=== PATIENT | female | born 1930 | race African-American/Black ===

== ENCOUNTER 2016-11-05 08:39 | Day surgery (SDC) | payer OTHER ==
[2016-11-05] MEDS ORDERED: LIDOCAINE 1% 20 ML MDV ID ONE (09:10)
[2016-11-05] MEDS ORDERED: LIDOCAINE 1% 20 ML MDV ONE (09:10)
[2016-11-05] MEDS ORDERED: VERSED ONE (10:03)
[2016-11-05] MEDS ORDERED: DIPRIVAN 20 ML VIAL IVP ONE (10:03)
[2016-11-05 13:05] VITALS: BP 152/76; TEMP 97
--- NOTE | 2016-11-05 14:15 | OP ---
PROCEDURE: COLONOSCOPY TO CECUM WITH SNARE POLYPECTOMY, CLIP PLACEMENT, FIJIAN INK TATTOOING. ENDOSCOPIST: Arjun IYER M.D. INDICATION: HISTORY OF POLYPS. INSTRUMENT: [facility]-190. MEDICATION: PER ANESTHESIA. PROCEDURE: The patient was positioned for colonoscopy. The digital rectal exam was negative. The colonoscope was inserted through the anus and advanced to the cecum. The cecum was identified using the ileocecal valve and the appendiceal orifice as landmarks. The scope was slowly withdrawn through an adequately prepped colon. Careful inspection made of each colonic segment and the scope was withdrawn in a circumferential fashion. Care if taken to inspect to the proximal side of the ileocecal valves, haustral folds, flexures and rectal valves. At the Hepatic flexure we encountered a 1.5 to 1.8cm polyp. Initially this appears to be sessile however with manipulation it appeared to be a more of semi pedunculated type polyp. We were able to remove this using snare cautery. There was some mild oozing the from the base and a clip was placed. ink was then applied to localize the area. There was no bleeding at the completion of the procedure. The remaining colon was notable for some diverticuli in the left colon and the retroflex exam was otherwise negative. She tolerated the procedure without immediate complication. Withdraw time 16 minutes and 46 seconds. PLAN: 1. We will suggest repeat colonoscopy in one year. After we review the pathology if she is agreeable to repeat the exam. 2. Further recommendations to follow CC: Dr. Cyrus WALTON
== END 2016-11-05 11:45 | disposition home or self-care (01) ==
LOC: SURG 08:39
PROVIDERS: ATTEND Internal Medicine Gastroenterology
DX: Z09 Encounter for follow-up examination after completed treatment for conditions other than malignant neoplasm (principal); Z86.010 Personal history of colon polyps; D12.3 Benign neoplasm of transverse colon; E11.9 Type 2 diabetes mellitus without complications
CPT/HCPCS: 82962

== ENCOUNTER 2016-11-15 08:20 | Outpatient (CLI) ==
--- NOTE | 2016-11-15 09:05 | US ---
Exam: Bilateral renal ultrasound. HISTORY: Chronic kidney disease stage III. COMPARISON: 05/06/2015 CT TECHNIQUE: Ultrasonography of the right and left kidneys. FINDINGS: The right kidney measures 9.5 x 3.8 x 3.7 cm and the left kidney measures 8.8 x 4.4 x 3.9 cm. There is mild bilateral renal cortical thinning. No hydronephrosis is seen. A left renal inferior pole a nechoic structure is seen measuring 1.3 x 1.2 x 1.2 cm. No right or left renal solid masses are rosio ntified. The bladder is not well distended, and not identified. IMPRESSION: Mild bilateral renal cortical thinning which could be related to medical renal disease. 1.3 cm left renal cyst.
== END 2016-11-15 08:21 | disposition home or self-care (01) ==
LOC: RAD 08:20
PROVIDERS: ATTEND Family Medicine
DX: N18.3 Chronic kidney disease, stage 3 (moderate) (principal)
CPT/HCPCS: 76770

== ENCOUNTER 2018-03-10 06:57 | Day surgery (SDC) | payer OTHER ==
[2018-03-10] MEDS ORDERED: DIPRIVAN 20 ML VIAL IVP ONE (09:18)
[2018-03-10 15:08] VITALS: BP 122/56; TEMP 98.4
--- NOTE | 2018-03-11 10:46 | OP ---
PROCEDURE: COLONOSCOPY TO THE CECUM WITH SNARE POLYPECTOMY. ENDOSCOPIST: Arjun IYER M.D. INDICATION: HISTORY OF POLYPS INSTRUMENT: [facility]-190. MEDICATION: PER ANESTHESIA. PROCEDURE: The patient was positioned for colonoscopy. The digital rectal exam was negative. The colonoscope was inserted through the anus and advanced to the cecum. The cecum was identified using the ileocecal valve and the appendiceal orifice as landmarks. The scope was slowly withdrawn through an adequately prepped colon. [place] Bowel Prep Score equal 9. At the Hepatic flexure we identified the area with cypriot ink. I saw no residual polyp at the scare. A small polyp associated with the hepatic flexure was removed using cold snare polypectomy. A 6mm semi-pedunculated polyp was removed at 15cm using snare cautery. The retroflex exam was otherwise normal. She tolerated the procedure without immediate complication. Withdraw time 7 minutes and 37 seconds. PLAN: 1. Given her age I'm doubtful the repeat colonoscopy is indicated. We will see her back as needed. CC: Dr. Eric Bridges. [facility]
== END 2018-03-10 10:30 | disposition home or self-care (01) ==
LOC: SURG 06:57
PROVIDERS: ATTEND Internal Medicine Gastroenterology
DX: D12.3 Benign neoplasm of transverse colon (principal); D12.6 Benign neoplasm of colon, unspecified; Z86.010 Personal history of colon polyps

== ENCOUNTER 2019-03-22 15:53 | Emergency (ER) | payer OTHER ==
[2019-03-22 16:11] VITALS: BP 156/117; TEMP 98.1; BMI 23.1
--- NOTE | 2019-03-22 16:55 | CT ---
Exam: CT of the brain without intravenous contrast. Comparison: None available. Reason for exam: Dizziness and weakness, stroke protocol. FINDINGS: No acute intracranial hemorrhage, mass effect, or territorial infarction. Parenchymal dasha nges are seen consistent with chronic microvascular disease. Parenchymal hypodensities are seen in t he left basal ganglia, left and right frontal lobes, and periventricular white matter. Chronic appea ring hypodensities seen in the left posterior parietal lobe best seen on coronal image number 48. Th e intracranial structures appear midline. The calvarium appears intact without depressed fracture. Mucosal thickening is seen in the ethmoid sinuses. No depressed calvarial fracture is seen. Impression: 1. No acute intracranial hemorrhage or mass effect is seen on this exam. 2. Parenchymal changes are seen consistent with chronic microvascular disease and old lacunar infarc ts. If clinical concern exists for acute infarct, MRI should be performed for further characterizati on. Findings were discussed directly with the emergency room physician at 1650 hours on 03/22/2019.
[2019-03-22] MEDS ORDERED: K-DUR PO STA (17:15)
--- NOTE | 2019-03-22 17:25 | ED.PDOC ---
General ED Provider: Dr. DESMOND DOTSON-ER Chief Complaint: Weakness Stated Complaint: her right side was weak and she was tilting to the right--she refused ems Time Seen by Physician: 15:55 Mode of Arrival: Wheelchair Information Source: Patient, Family Exam Limitations: No limitations Primary Care Provider: RUSS ANDRADE Nursing and Triage Documentation Reviewed and Agree: Yes Does patient meet sepsis criteria?: No System Inflammatory Response Syndrome: Not Applicable Sepsis Protocol: For patient's 13 years and over: Temp is 96.8 and below OR 101 and greater Pulse >90 BPM Resp >20/minute Acutely Altered Mental Status Are patient's symptoms suggestive of a new infection, such as: -Pneumonia -Skin, Soft Tissue -Endocarditis -UTI -Bone, Joint Infection -Implantable Device -Acute Abdominal Infection -Wound Infection -Meningitis -Blood Stream Catheter Infection -Unknown Neurological Complaint Exam - Weakness Complaint/Exam Last Known Well: 1 today Onset: Sudden Symptoms Are: Resolved Timing: Constant Initial Severity: Mild Current Severity: Mild Character: Reports: Weak Aggravating: Reports: None Alleviating: Reports: None Associated Signs and Symptoms: Reports: Unsteady gait CVA Risk Factors: Reports: Hypertension JVD Present: No Carotid Bruit Present: No Glascow Coma Scale (see protocol): 15 Nystagmus Present: No Gag Reflex Present: Yes Meningeal Signs Positive: No Focal Weakness: Present: None Focal Sensory Loss: Present: None Gait: Unsteady Romberg Test Positive: No Heel to Toe Normal: No [place]-Hallpike Test Positive: No Differential Diagnoses: Metabolic abnormalities Quality Indicator For Non-Traumatic Chest Pain/Syncope: EKG Performed Review of Systems - Review Of Systems Constitutional: Reports: No symptoms Eyes: Reports: No symptoms Ears, Nose, Mouth, Throat: Reports: No symptoms Respiratory: Reports: No symptoms Cardiac: Reports: No symptoms GI: Reports: No symptoms : Reports: No symptoms Musculoskeletal: Reports: No symptoms Skin: Reports: No symptoms Neurological: Reports: Weakness Endocrine: Reports: No symptoms Hematologic/Lymphatic: Reports: No symptoms All Other Systems: Reviewed and Negative Past Medical History - Past Medical History Previously Healthy: No Endocrine: Reports: Unknown Cardiovascular: Reports: Hypertension Respiratory: Reports: Unknown Hematological: Reports: None Gastrointestinal: Reports: None Genitourinary: Reports: None Neuro/Psych: Reports: None Musculoskeletal: Reports: None Cancer: Reports: None Last Menstrual Period: none - Surgical History General Surgical History: Reports: Unknown - Family History Family History: Reports: Unknown - Social History Smoking Status: Former smoker Hx Substance Use: No Alcohol Screening: None Physical Exam - Physical Exam Appearance: Well-appearing, No pain distress, Well-nourished Eyes: VIRA, EOMI, Conjunctiva clear ENT: Ears normal, Nose normal, Oropharynx normal Neck: Supple Respiratory: Airway patent, Breath sounds clear, Breath sounds equal, Respirations nonlabored Cardiovascular: RRR, Pulses normal, No rub, No murmur GI/: Soft, Nontender, No masses, Bowel sounds normal, No Organomegaly Musculoskeletal: Normal strength, ROM intact, No edema, No calf tenderness Skin: Warm, Dry, Normal color Neurological: Alert, Oriented Psychiatric: Affect appropriate, Mood appropriate Interpretation - Radiology Interpretation Radiology Interpretation By: Radiologist Radiology Results: Negative Exam Interpreted: CT Scan - EKG Interpretation Time of EKG #1: 17:26 Rate: Normal Rhythm: Sinus Ectopy: None [place]: NL ST Segment: Normal Interpretation: nsr Re-Evaluation - Re-Evaluation Time of Re-Evaluation: 17:26 Status: Improved Vital Signs Stable: Yes Pain Level: 0 Appearance: NAD Lungs: Clear Skin: Warm and Dry Neuro: Alert and Oriented X3 CV: RRR Physician Notification - Case Discussed Physician Notified: dr andrade Time of Notification: 17:26 Critical Care Note - Critical Care Note Total Time (mins): 0 Course - Course Hematology/Chemistry: 03/22/19 16:45 03/22/19 16:45 Orders, Labs, Meds: Lab Review 03/22/19 03/22/19 16:45 16:45 WBC 6.36 RBC 4.65 Hgb 12.8 Hct 40.0 MCV 86.0 MCH 27.5 MCHC 32.0 RDW Coeff of Dale 13.9 Plt Count 179 Immature Gran % (Auto) 0.2 Neut % (Auto) 71.3 Lymph % (Auto) 16.8 Yell % (Auto) 10.5 H Eos % (Auto) 0.6 Baso % (Auto) 0.6 Immature Gran # (Auto) 0.0 Neut # (Auto) 4.5 Lymph # (Auto) 1.1 Yell # (Auto) 0.7 Eos # (Auto) 0.0 Baso # (Auto) 0.0 ESR 20 Sodium 139.5 Potassium 2.49 L* Chloride 99.7 Carbon Dioxide 34.4 H Anion Gap 7.89 BUN 31.0 H Creatinine 1.20 Estimated GFR (MDRD) 52.00 BUN/Creatinine Ratio 25.83 Glucose 125.6 H Calcium 9.29 Total Bilirubin 1.34 H AST 28.5 ALT 15.3 Alkaline Phosphatase 107.9 Total Creatine Kinase 45.5 Troponin I 0.012 Total Protein 7.08 Albumin 3.86 Globulin 3.22 Albumin/Globulin Ratio 1.19 Orders Category Date Time Status EKG-(ED ONLY) Stat CARDIO 03/22/19 16:25 Completed TRANSFER TO OUTSIDE FACILITY .TO [facility] 03/22/19 17:27 Active ([place], [place]) WRITE TRANSFER/SBAR NOTE ONCE CARE 03/22/19 17:27 Active DISCHARGE ASSESSMENT ONCE DISCHARGE 03/22/19 17:27 Active WRITE DISCHARGE NOTE ONCE DISCHARGE 03/22/19 17:27 Active ED ANIMAL THERAPIST APPLIED .ONCE EMERGENCY 03/22/19 16:25 Active ED IV/MEDIPORT/POWERPORT .ONCE EMERGENCY 03/22/19 16:25 Active IV [ED IV/MEDIPORT/POWERPORT] .ONCE EMERGENCY 03/22/19 17:14 Active CBC W/ AUTO DIFF Stat LAB 03/22/19 16:45 Completed COMPREHENSIVE METABOLIC PANEL Stat LAB 03/22/19 16:45 Completed CREATINE KINASE Stat LAB 03/22/19 16:45 Completed ESR Stat LAB 03/22/19 16:45 Completed TROPONIN I Stat LAB 03/22/19 16:45 Completed 0.9 % Sodium Chloride [Saline Flush] MEDS 03/22/19 16:25 Active 1 syr IVF PRN PRN 0.9 % Sodium Chloride [Saline Flush] MEDS 03/22/19 17:14 Active 1 syr IVF PRN PRN Potassium Chloride [K-Dur] MEDS 03/22/19 17:15 Discontinued 40 meq PO ONCE STA CT HEAD W/O CONTRAST Stat RADS 03/22/19 16:25 Completed Medications Generic Name Dose Route Start Last Admin Trade Name Freq PRN Reason Stop Dose Admin Sodium Chloride 1 syr 03/22/19 16:25 03/22/19 17:29 Saline Flush IVF 1 syr PRN PRN Administration To flush IV Sodium Chloride 1 syr 03/22/19 17:14 Saline Flush IVF PRN PRN To flush IV Discontinued Medications Generic Name Dose Route Start Last Admin Trade Name Asad PRN Reason Stop Dose Admin Potassium Chloride 40 meq 03/22/19 17:15 03/22/19 17:26 K-Dur PO 03/22/19 17:16 40 meq ONCE STA Administration Vital Signs: Temp Pulse Resp BP Pulse Ox 03/22/19 15:54 98.1 F 86 18 156/117 H 98 Departure - Departure Time of Disposition: 17:26 Disposition: HOME SELF-CARE Discharge Problem: Muscle weakness, Hypokalemia Instructions: Hypokalemia (ED) Condition: Good Pt referred to PMD for follow-up: Yes IPMP verified?: No Allergies/Adverse Reactions: Allergies No Known Allergies Allergy (Verified 03/22/19 16:01) Home Medications: Ambulatory Orders Furosemide 20 mg PO BID 11/05/16 Potassium Chloride [Klor-Con 10] 10 meq PO BID 11/05/16 Spironolactone 25 mg PO DAILY 11/05/16 Terazosin HCl 10 mg PO DAILY 11/05/16 Amlodipine Besylate [Norvasc] 5 mg PO DAILY 03/22/19 Atorvastatin Calcium [Lipitor] 20 mg PO BEDTIME 03/22/19 Transfer Form Completed: Yes Disposition Discussed With: Patient, Family
[2019-03-22] MEDS ORDERED: NORVASC PO STA (17:35)
[2019-03-22] MEDS ORDERED: ASPIRIN EC PO STA (17:39)
== END 2019-03-22 18:24 | disposition short-term general hospital (02) ==
LOC: ED 15:53
DX: M62.81 Muscle weakness (generalized) (principal); E87.6 Hypokalemia; R26.81 Unsteadiness on feet; I10 Essential (primary) hypertension; Z79.899 Other long term (current) drug therapy
CPT/HCPCS: 36415; 80053; 82550; 84484; 85025; 85651; 93005; 93010; 99285

== ENCOUNTER 2019-03-22 18:22 | Outpatient (CLI) | payer OTHER ==
[2019-03-22 16:11] VITALS: BMI 23.1
== END 2019-03-22 18:44 | disposition short-term general hospital (02) ==
LOC: AMBL 18:22
PROVIDERS: ATTEND Family Medicine
DX: R53.1 Weakness (principal)

== ENCOUNTER 2022-02-22 23:09 | Inpatient (IN) ==
--- NOTE | 2022-02-22 23:32 | ED.PDOC ---
General ED Provider: Dr. TERESSA KIRKPATRICK Chief Complaint: Weakness Stated Complaint: Comes to the ER with multiple Diarrhea stools and decreased in appetite over the last few days. Has been felling weak. Time Seen by Provider: 02/22/22 23:14 Mode of Arrival: Wheelchair Information Source: Patient and Family Primary Care Provider: RUSS ORELLANA Nursing and Triage Documentation Reviewed and Agree: Yes Does patient meet sepsis criteria?: No System Inflammatory Response Syndrome: Not Applicable Sepsis Protocol: For patient's 13 years and over: Temp is 96.8 and below OR 101 and greater Pulse >90 BPM Resp >20/minute Acutely Altered Mental Status Are patient's symptoms suggestive of a new infection, such as: -Pneumonia -Skin, Soft Tissue -Endocarditis -UTI -Bone, Joint Infection -Implantable Device -Acute Abdominal Infection -Wound Infection -Meningitis -Blood Stream Catheter Infection -Unknown Review of Systems Review Of Systems Constitutional: Reports No symptoms Eyes: Reports No symptoms Ears, Nose, Mouth, Throat: Reports Other (Dry mouth ) GI: Reports Abdominal pain, Diarrhea, Nausea, Poor appetite and Poor fluid intake Neurological: Reports Anxiety All Other Systems: Reviewed and Negative [facility] Medical History (Updated 02/23/22 @ 01:54 by TERESSA KIRKPATRICK MD) CHF (congestive heart failure) High cholesterol Hypertension Social History Smoking and tobacco status: Former smoker Surgical History (Updated 02/22/22 @ 23:26 by TREVER YEUNG LPN) History of appendectomy Female Reproductive History Menstrual Hx Hysterectomy: No Hx Tubal Ligation: No Physical Exam Physical Exam Appearance: Reports Ill-appearing and Thin Ill-appearing: Moderate Pain Distress: Mild Eyes: Reports VIRA, EOMI and Conjunctiva clear ENT: Reports Nose normal and Dry mucosa Neck: Not Examined Respiratory: Reports Airway patent, Breath sounds clear and Breath sounds equal Cardiovascular: Reports RRR, Pulses normal and No rub GI/: Reports Soft, No masses, Bowel sounds normal and Tender (mild diffuse no rebound ) Musculoskeletal: Reports Edema Skin: Reports Warm and Dry Neurological: Reports Motor intact, Alert and Oriented Psychiatric: Reports Anxious Interpretation Radiology Interpretation Radiology Interpretation By: Radiologist Radiology Results: No acute changes (1. No damian evidence for acute pancreatitis. 2. Wall thickening of the rectosigmoid colon and ascending colon most likely infectious or inflammatory etiology. No bowel obstruction. 3. Colonic diverticulosis. 4. Atherosclerotic vascular disease) Exam Interpreted: CT Scan Radiology Interpretation By: Radiologist Radiology Results: No acute changes (Emphysematous changes. Normal-sized cardiac silhouette with coronary artery calcification. Spiculated nodule right upper lobe which merits further evaluation. Small amount perihepatic ascites) Exam Interpreted: CT Scan (chest ) EKG Interpretation Time of EKG #1: 23:51 Rate: Normal Rhythm: Sinus Ectopy: None [place]: NL ST Segment: Normal Interpretation: RBBB Physician Notification Case Discussed Physician Notified: Dr. Mason Time of Notification: 01:53 (Ok to admit to [facility] ) Critical Care Note Critical Care Note Total Critical Care Time (mins): 30 Course Course Hematology/Chemistry: 02/22/22 23:43 02/22/22 23:43 Orders, Labs, Meds: Lab Review 02/22/22 02/22/22 02/22/22 23:43 23:43 23:43 WBC 12.62 H RBC 4.71 Hgb 12.9 Hct 39.5 MCV 83.9 MCH 27.4 MCHC 32.7 RDW Coeff of Dale 16.6 H Plt Count 143 Neutrophils % (Manual) 79.0 H Lymphocytes % (Manual) 10.0 Monocytes % (Manual) 11.0 H Anisocytosis Not present Sodium 137.9 Potassium 3.13 L Chloride 98.5 Carbon Dioxide 20.1 L Anion Gap 22.43 BUN 40.7 H Creatinine 2.65 H Estimated GFR (MDRD) 21.00 BUN/Creatinine Ratio 15.35 Glucose 127.7 H Calcium 8.97 Total Bilirubin 4.49 H AST 761.1 H ALT 377.8 H Alkaline Phosphatase 654.3 H Total Creatine Kinase Pending Troponin I Pending NT-Pro-B Natriuret Pep Pending Total Protein 8.04 Albumin 3.47 L Globulin 4.57 Albumin/Globulin Ratio 0.75 Amylase 160.7 H Lipase 1376.6 H TSH Pending Urine Color Urine Clarity Urine pH Ur Specific [place] Urine Protein Urine Glucose (UA) Urine Ketones Urine Blood Urine Nitrite Urine Bilirubin Urine Urobilinogen Ur Leukocyte Esterase Urine Microscopic RBC Urine Microscopic WBC Ur Squamous Epith Cells Ur Renal Epithelial Cell Amorphous Sediment Urine Bacteria Granular Casts SARS CoV-2 RNA Rapid CARLOS Negative 02/22/22 23:43 WBC RBC Hgb Hct MCV MCH MCHC RDW Coeff of [place] Plt Count Neutrophils % (Manual) Lymphocytes % (Manual) Monocytes % (Manual) Anisocytosis Sodium Potassium Chloride Carbon Dioxide Anion Gap BUN Creatinine Estimated GFR (MDRD) BUN/Creatinine Ratio Glucose Calcium Total Bilirubin AST ALT Alkaline Phosphatase Total Creatine Kinase Troponin I NT-Pro-B Natriuret Pep Total Protein Albumin Globulin Albumin/Globulin Ratio Amylase Lipase TSH Urine Color Dark Urine Clarity Cloudy Urine pH 6.0 Ur Specific [place] >=1.030 Urine Protein 3+ H Urine Glucose (UA) Negative Urine Ketones Negative Urine Blood 3+ H Urine Nitrite Negative Urine Bilirubin 1+ H Urine Urobilinogen 2.0 H Ur Leukocyte Esterase Negative Urine Microscopic RBC 5-10 Urine Microscopic WBC 0-2 Ur Squamous Epith Cells 0-2 Ur Renal Epithelial Cell 2-5 Amorphous Sediment 1+ Urine Bacteria 1+ Granular Casts 2-5 SARS CoV-2 RNA Rapid CARLOS Orders Category Date Time Status EKG-(ED ONLY) Stat CARDIO 02/22/22 23:24 Completed AMYLASE Stat LAB 02/22/22 23:43 Results CBC W/ AUTO DIFF Stat LAB 02/22/22 23:43 Completed COMPREHENSIVE METABOLIC PANEL Stat LAB 02/22/22 23:43 Results CPK [CREATINE KINASE] Stat LAB 02/22/22 23:43 Results LIPASE Stat LAB 02/22/22 23:43 Results MANUAL DIFFERENTIAL Stat LAB 02/22/22 23:43 Completed NT-PROBNP Stat LAB 02/22/22 23:43 Results SARS COV-2 RNA RAPID CARLOS Stat LAB 02/22/22 23:43 Completed THYROID STIMULATING HORMONE Stat LAB 02/22/22 23:43 Results TROPONIN I Stat LAB 02/22/22 23:43 Results URINALYSIS C & S IF INDICATED Stat LAB 02/22/22 23:43 Completed URINE CULTURE Stat LAB 02/23/22 22:[address] ABDOMEN/PELVIS WO CONTRAST Stat RADS 02/23/22 00:[address] CHEST W/O CONTRAST Stat RADS 02/23/22 00:23 Ordered Vital Signs: Temp Pulse Resp BP Pulse Ox 02/22/22 23:10 98 F 76 20 133/67 93 L Discharge Plan Discharge Patient Disposition: ADMITTED INPATIENT Discharge Problem: Acute renal failure, Weakness generalized, Abnormal LFTs (liver function tests), Dehydration, Gastroenteritis Prescriptions: No Action potassium chloride [Klor-Con 10] 10 MEQ tablet extended release 10 meq PO BID spironolactone 25 MG tablet 25 mg PO DAILY furosemide 20 MG tablet 20 mg PO BID metoprolol succinate 25 mg tablet extended release 24 hr 25 mg PO DAILY Label Comments: TAKE 1 TABLET BY MOUTH EVERY DAY escitalopram oxalate 5 mg tablet 5 mg PO DAILY atorvastatin 20 MG tablet 80 mg PO BEDTIME amlodipine 5 MG tablet 5 mg PO DAILY Did you review [facility] TECHNICIAN?: Not Applicable ED Provider: TERESSA KIRKPATRICK Condition: Fair Physician Progress Note: []
[2022-02-22 23:48] LABS: HEMATOCRIT 39.5 % (37.0-47.0); HEMOGLOBIN 12.9 g/dl (12.0-16.0); MEAN CORPUSCULAR HEMOGLOBIN 27.4 pg (27.0-31.0); MEAN CORPUSCULAR HGB CONC 32.7 (31.8-35.4); MEAN CORPUSCULAR VOLUME 83.9 fl (81.0-99.0); PLATELET COUNT 143 10^3/uL (140-440); RDW COEFFICIENT OF VARIATION 16.6 % (11.6-14.8); RED BLOOD COUNT 4.71 10^6/ul (4.20-5.40); WHITE BLOOD COUNT 12.62 K/ul (4.6-10.2)
[2022-02-22 23:57] LABS: BILIRUBIN,URINE 1+ (NEGATIVE); CLARITY,URINE Cloudy (CLEAR); COLOR,URINE Dark (YELLOW); GLUCOSE, URINE (UA) Negative (NEGATIVE); KETONES,URINE Negative (NEGATIVE); LEUKOCYTE ESTERASE ,URINE Negative (NEGATIVE); NITRITE,URINE Negative (NEGATIVE); PROTEIN,URINE 3+ (NEGATIVE); URINE, BLOOD 3+ (NEGATIVE)
[2022-02-23] LABS: ALBUMIN 3.47 g/dL (3.5-5.0); ALKALINE PHOSPHATASE 654.3 U/L (53-141); AMYLASE 160.7 U/L (30-110); ANISOCYTOSIS NOT PRESENT (NOT PRESENT); BILIRUBIN,TOTAL 4.49 mg/dL (0.2-1.3); BLOOD UREA NITROGEN 40.7 mg/dL (7-17); CALCIUM 8.97 mg/dL (8.4-10.2); CARBON DIOXIDE 20.1 mmol/L (22-30.0); CHLORIDE 98.5 mmol/L (98-107); CREATININE 2.65 mg/dL (0.60-1.30); GLUCOSE 127.7 mg/dL (74-106); LIPASE 1376.6 U/L (23-300); POTASSIUM 3.13 mmol/L (3.5-5.1); SODIUM 137.9 mmol/L (134.5-145); TOTAL PROTEIN 8.04 g/dL (6.3-8.2)
[2022-02-23 00:08] LABS: ALANINE AMINOTRANSFERASE 377.8 U/L (0-35); AMORPHOUS SEDIMENT,UR 1+ (NOT PRESENT); BACTERIA,URINE 1+ (NOT PRESENT); SQUAMOUS EPITHELIAL CELL,UR 0-2 (0-5); URINE WBC, MICROSCOPIC 0-2 (0-2)
[2022-02-23 00:09] LABS: ASPARTATE AMINO TRANSFERASE 761.1 U/L (14-36)
[2022-02-23 00:12] LABS: TROPONIN I 0.082 ng/ml (0.0000-0.120)
[2022-02-23] MEDS ORDERED: LACTATED RINGERS 1,000 ML IV STA (00:29)
[2022-02-23 00:31] LABS: THYROID STIMULATING HORMONE 2.43 uIU/L (0.465-4.68)
[2022-02-23 00:41] LABS: CREATINE KINASE MB 8.03 ng/ml (0.0-2.38)
--- NOTE | 2022-02-23 01:27 | CT ---
EXAM: CT scan chest without contra HISTORY: Weakness COMPARISON: CT scan chest 03/31/2015 FINDINGS: Helically acquired axial images obtained through the thorax without contrast utilizing 5-m m collimation. Sagittal and coronal reconstructions were imaged reviewed.. The thoracic inlet is un remarkable. The ascending aorta is ectatic measuring 3.1 cm. Heart is normal in size with coronary artery calcification. There are subcentimeter mediastinal lymph nodes likely reactive in nature.. T here are moderate emphysematous changes. There is a 10 x 6.7 mm spiculated nodule posteriorly and me dially within the right upper lobe.. Scarring and/or atelectasis is noted at the right lung base.. P erihepatic ascites. Cholecystectomy. Likely a simple cyst upper pole left kidney IMPRESSION: Emphysematous changes. Normal-sized cardiac silhouette with coronary artery calcification. Spiculated nodule right upper lobe which merits further evaluation. Small amount perihepatic ascites All CT scans are performed using dose optimization techniques as appropriate to the performed exam an d include at least one of the following: Automated exposure control, adjustment of the mA and/or kV according t o size, and the use of iterative reconstruction technique.
--- NOTE | 2022-02-23 01:38 | CT ---
EXAM: CT of the abdomen pelvis without contrast. History: Abdominal pain and elevated lipase All all comparison: CT abdomen pelvis 05/06/2015 Technique: Multiplanar CT images through the abdomen pelvis were obtained without the administration of IV contrast Findings: Heart is mildly enlarged. Subsegmental atelectasis within the lower lungs. No acute osse ous abnormalities. Degenerative changes of the spine. Atherosclerotic vascular calcifications. Stable hepatic cysts. Status post cholecystectomy. Spleen is unremarkable. There is no damian peripancreatic inflammation. No bowel obstruction. Colonic div erticulosis. A few small left renal cysts. 3 mm calculus within the left kidney. No right renal ca lculi and no hydronephrosis. Fat-containing ventral hernia. Adrenal glands are unremarkable. Evalu ation for lymph nodes is limited due to the lack of contrast administration. No bladder wall thicken ing. There is circumferential wall thickening of the rectosigmoid colon. There is also wall thicken ing of the ascending colon. Impression: 1. No damian evidence for acute pancreatitis. 2. Wall thickening of the rectosigmoid colon and ascending colon most likely infectious or inflammat ory etiology. No bowel obstruction. 3. Colonic diverticulosis. 4. Atherosclerotic vascular disease All CT scans are performed using dose optimization techniques as appropriate to the performed exam an d include at least one of the following: Automated exposure control, adjustment of the mA and/or kV according t o size, and the use of iterative reconstruction technique.
[2022-02-23] MEDS ORDERED: ZOFRAN 4 MG/2 ML IVP PRN (02:05)
[2022-02-23 03:29] VITALS: BMI 21.4
[2022-02-23] MEDS: SODIUM CHLORIDE 1,000 ML IV SCH ×2 (05:34→11:49)
[2022-02-23 06:01] LABS: HEMATOCRIT 37.3 % (37.0-47.0); HEMOGLOBIN 12.4 g/dl (12.0-16.0); MEAN CORPUSCULAR HEMOGLOBIN 27.4 pg (27.0-31.0); MEAN CORPUSCULAR HGB CONC 33.2 (31.8-35.4); MEAN CORPUSCULAR VOLUME 82.5 fl (81.0-99.0); PLATELET COUNT 131 10^3/uL (140-440); RDW COEFFICIENT OF VARIATION 16.1 % (11.6-14.8); RED BLOOD COUNT 4.52 10^6/ul (4.20-5.40); WHITE BLOOD COUNT 14.45 K/ul (4.6-10.2)
[2022-02-23 06:12] LABS: ANISOCYTOSIS NOT PRESENT (NOT PRESENT)
[2022-02-23 06:15] LABS: ALANINE AMINOTRANSFERASE 350.1 U/L (0-35); ALKALINE PHOSPHATASE 583.5 U/L (53-141); ASPARTATE AMINO TRANSFERASE 748.3 U/L (14-36); BILIRUBIN,TOTAL 4.46 mg/dL (0.2-1.3); BLOOD UREA NITROGEN 41.1 mg/dL (7-17); CALCIUM 8.59 mg/dL (8.4-10.2); CARBON DIOXIDE 21.4 mmol/L (22-30.0); CHLORIDE 100.8 mmol/L (98-107); CREATININE 2.64 mg/dL (0.60-1.30); GLUCOSE 104.7 mg/dL (74-106); POTASSIUM 2.82 mmol/L (3.5-5.1); SODIUM 134.6 mmol/L (134.5-145); TOTAL PROTEIN 7.1 g/dL (6.3-8.2)
[2022-02-23] MEDS ORDERED: K-DUR PO ONE (08:51)
--- NOTE | 2022-02-23 08:51 | PCM.PROG ---
Date Seen by Provider: 02/23/22 Time Seen by Provider: 08:15 Subjective: Remains weak. PO intake poor. Patient has no complaints. Objective: Vitals: T=97.2 F, P=68, R=16, ZX=048/62, SPO2=98 Patient is alert and in NAD. She appears to be weak. HEENT: []Oral mucosa somewhat dry. Neck: [] Lungs: [] Chest clear. BS equal. CVS: []RRR. Abdomen: []Nondistended, soft and nontender. Extremities: []Moderate peripheral edema. Neurological: [] Skin: [] Lab/Tests/Diagnostic Imaging: [] (1) Acute renal failure: Status: Acute Code(s): N17.9 - Acute kidney failure, unspecified SNOMED Code(s): 31435615 (2) Weakness generalized: Status: Acute Code(s): R53.1 - Weakness SNOMED Code(s): 43000597 (3) Abnormal LFTs (liver function tests): Status: Acute Code(s): R79.89 - Other specified abnormal findings of blood chemistry SNOMED Code(s): 474955564 (4) Dehydration: Status: Acute Code(s): E86.0 - Dehydration SNOMED Code(s): 68317240 (5) Gastroenteritis: Status: Acute Code(s): K52.9 - Noninfective gastroenteritis and colitis, unspecified SNOMED Code(s): 88145101 Plan: Continue IV fluid rehydration. Encourage PO intake. Replace potassium. Check gallbladder ultrasound to evaluate increased bilirubin and LFTS.
[2022-02-23] MEDS: TOPROL XL PO SCH (08:52)
[2022-02-23] MEDS: LEXAPRO PO SCH (08:52)
[2022-02-23] MEDS: LOVENOX SUBCUT SCH (08:52)
[2022-02-23] MEDS ORDERED: D5%-NS-KCL 40 MEQ/L IV SOL 1,000 ML IV SCH (09:00)
--- NOTE | 2022-02-23 11:08 | US ---
EXAM: Ultrasound abdomen, limited. HISTORY: Right upper quadrant pain. COMPARISON: None. FINDINGS: The liver has a normal sonographic appearance. There is of 1.8 x 2.3 x 2.3 cm hypoechoic c yst right lobe of the liver.. Flow in the portal vein antegrade. The gallbladder is surgically absent. Common dense 0.79 cm . The pancreas is partially obscured by bowel gas. Right renal contour is obscured by bowel gas and breathing motion.. Diameter right renal cortex . IMPRESSION: Hepatic cyst 2. Status post cholecystectomy
[2022-02-23] MEDS: D5%-NS-KCL 40 MEQ/L IV SOL 1,000 ML IV SCH (21:31)
[2022-02-24 05:32] LABS: BASOPHILS % (AUTO) 0.1 % (0.0-3.0); HEMOGLOBIN 13.6 g/dl (12.0-16.0); IMMATURE GRANULOCYTE # (AUTO) 0.1 (0.0-1.0); IMMATURE GRANULOCYTE % (AUTO) 0.4 % (0.0-5.0); LYMPHOCYTES # (AUTO) 1.2 K/uL (0.60-3.4); LYMPHOCYTES % (AUTO) 8.1 (10.0-50.0); MEAN CORPUSCULAR VOLUME 82.3 fl (81.0-99.0); MONOCYTES % (AUTO) 13.4 (0-10); NEUTROPHILS # (AUTO) 11.7 K/ul (2.0-6.9); PLATELET COUNT 148 10^3/uL (140-440); RDW COEFFICIENT OF VARIATION 17.1 % (11.6-14.8); RED BLOOD COUNT 4.86 10^6/ul (4.20-5.40); WHITE BLOOD COUNT 15.01 K/ul (4.6-10.2)
[2022-02-24 06:10] LABS: FREE T4 (FREE THYROXINE) 2.08 ng/dL (0.78-2.19)
[2022-02-24 06:38] LABS: ANISOCYTOSIS NOT PRESENT (NOT PRESENT)
[2022-02-24 06:40] LABS: BURR CELLS 2+ (NOT PRESENT)
[2022-02-24 07:17] LABS: ALBUMIN 2.72 g/dL (3.5-5.0); ALKALINE PHOSPHATASE 659.1 U/L (53-141); BILIRUBIN,TOTAL 5.99 mg/dL (0.2-1.3); BLOOD UREA NITROGEN 47.6 mg/dL (7-17); CALCIUM 7.94 mg/dL (8.4-10.2); CARBON DIOXIDE 20.9 mmol/L (22-30.0); CHLORIDE 103.2 mmol/L (98-107); GLUCOSE 131.6 mg/dL (74-106); SODIUM 133.8 mmol/L (134.5-145); TOTAL PROTEIN 6.92 g/dL (6.3-8.2)
[2022-02-24 07:28] LABS: POTASSIUM 4.29 mmol/L (3.5-5.1)
[2022-02-24 07:29] LABS: ASPARTATE AMINO TRANSFERASE 992.4 U/L (14-36); CREATININE 3.87 mg/dL (0.60-1.30); LIPASE 2669.1 U/L (23-300)
[2022-02-24 09:00] LABS: THYROID STIMULATING HORMONE 1.6 uIU/L (0.465-4.68)
[2022-02-24] MEDS: LEXAPRO PO SCH (09:35)
[2022-02-24 09:36] LABS: FOLATE 14.5 ng/mL
[2022-02-24] MEDS: LOVENOX SUBCUT SCH (09:36)
[2022-02-24] MEDS: TOPROL XL PO SCH (09:36)
[2022-02-24] MEDS ORDERED: SODIUM CHLORIDE 500 ML IV ONE (14:04)
[2022-02-24] MEDS ORDERED: TOPROL XL PO SCH (14:08)
[2022-02-24 14:17] LABS: ADENOVIRUS F40/41 (PCR) NOT DETECTED (NOT DETECT); ASTROVIRUS (PCR) NOT DETECTED (NOT DETECT); CAMPYLOBACTER (PCR) NOT DETECTED (NOT DETECT); CRYPTOSPORIDIUM (PCR) NOT DETECTED (NOT DETECT); CYCLOSPORA CAYETANENSIS (PCR) NOT DETECTED (NOT DETECT); ENTAMOEBA HISTOLYTICA (PCR) NOT DETECTED (NOT DETECT); ENTEROAGGREGATIVE E.COLI (PCR) NOT DETECTED (NOT DETECT); GIARDIA LAMBLIA (PCR) NOT DETECTED (NOT DETECT); NOROVIRUS GI/GII (PCR) NOT DETECTED (NOT DETECT); PLESIOMONAS SHIGELLOIDES (PCR) NOT DETECTED (NOT DETECT); ROTAVIRUS A (PCR) NOT DETECTED (NOT DETECT); SALMONELLA(PCR) NOT DETECTED (NOT DETECT); SAPOVIRUS (PCR) NOT DETECTED (NOT DETECT); SHIGA-LIKE TOXIN E.COLI (PCR) NOT DETECTED (NOT DETECT); VIBRIO (PCR) NOT DETECTED (NOT DETECT); VIBRIO CHOLERAE (PCR) NOT DETECTED (NOT DETECT); YERSINIA ENTEROCOLITICA (PCR) NOT DETECTED (NOT DETECT)
[2022-02-24] MEDS: FLAGYL 500 MG/100 ML 500 MG/100 ML BAG IV SCH ×2 (15:15→20:54)
[2022-02-24] MEDS: PROTONIX IV IVP SCH ×2 (15:15→20:54)
[2022-02-24 15:57] LABS: C DIFF A/B (PCR) NOT DETECTED (NOT DETECT)
[2022-02-24] MEDS: ROCEPHIN 1 GM/50 ML D5W 1 GM/50 ML BAG IV SCH (17:35)
[2022-02-24] MEDS: SODIUM CHLORIDE 1,000 ML IV SCH ×2 (17:38→23:09)
[2022-02-24] MEDS: D5%-NS-KCL 40 MEQ/L IV SOL 1,000 ML IV SCH (20:42)
[2022-02-25 05:32] LABS: BASOPHILS % (AUTO) 0.1 % (0.0-3.0); HEMATOCRIT 42.7 % (37.0-47.0); HEMOGLOBIN 14.5 g/dl (12.0-16.0); IMMATURE GRANULOCYTE # (AUTO) 0.1 (0.0-1.0); IMMATURE GRANULOCYTE % (AUTO) 0.4 % (0.0-5.0); LYMPHOCYTES # (AUTO) 0.8 K/uL (0.60-3.4); LYMPHOCYTES % (AUTO) 4.9 (10.0-50.0); MEAN CORPUSCULAR HEMOGLOBIN 27.8 pg (27.0-31.0); MONOCYTES % (AUTO) 17.6 (0-10); NEUTROPHILS # (AUTO) 13.1 K/ul (2.0-6.9); PLATELET COUNT 195 10^3/uL (140-440); RDW COEFFICIENT OF VARIATION 17.3 % (11.6-14.8); RED BLOOD COUNT 5.21 10^6/ul (4.20-5.40); WHITE BLOOD COUNT 17.05 K/ul (4.6-10.2)
[2022-02-25 05:43] LABS: ALANINE AMINOTRANSFERASE 418.1 U/L (0-35); ALBUMIN 2.24 g/dL (3.5-5.0); ALKALINE PHOSPHATASE 637.9 U/L (53-141); BILIRUBIN,TOTAL 6.42 mg/dL (0.2-1.3); BLOOD UREA NITROGEN 59.2 mg/dL (7-17); CALCIUM 7.49 mg/dL (8.4-10.2); CARBON DIOXIDE 15.7 mmol/L (22-30.0); CHLORIDE 106.2 mmol/L (98-107); GLUCOSE 167.5 mg/dL (74-106); POTASSIUM 3.67 mmol/L (3.5-5.1); SODIUM 133.9 mmol/L (134.5-145); TOTAL PROTEIN 6.24 g/dL (6.3-8.2)
[2022-02-25 05:51] LABS: ASPARTATE AMINO TRANSFERASE 923.1 U/L (14-36); CREATININE 5.03 mg/dL (0.60-1.30)
[2022-02-25] MEDS: FLAGYL 500 MG/100 ML 500 MG/100 ML BAG IV SCH ×3 (05:54→20:41)
[2022-02-25 05:58] LABS: ANISOCYTOSIS NOT PRESENT (NOT PRESENT)
[2022-02-25 05:59] LABS: BURR CELLS 3+ (NOT PRESENT)
[2022-02-25] MEDS: SODIUM CHLORIDE 1,000 ML IV SCH ×3 (08:24→16:07)
[2022-02-25] MEDS: PROTONIX IV IVP SCH ×2 (08:41→20:41)
[2022-02-25] MEDS: LEXAPRO PO SCH (08:50)
[2022-02-25] MEDS: ROCEPHIN 1 GM/50 ML D5W 1 GM/50 ML BAG IV SCH (08:51)
[2022-02-25] MEDS: LOVENOX SUBCUT SCH (08:53)
[2022-02-25] MEDS ORDERED: SODIUM CHLORIDE 500 ML IV STA (15:13)
[2022-02-25 18:01] VITALS: TEMP 94.9
[2022-02-25 21:47] VITALS: BP 68/0
--- NOTE | 2022-02-25 23:31 | PCM.PROG ---
Time of : 22:20 (No spontenous respirations, Pupils fix and dilated, No Pulse. Family at bedside. ) Preliminary Cause of : Acute renal failure
[2022-02-26] MEDS ORDERED: HEPARIN SUBCUT SCH (09:00)
== END 2022-02-26 00:20 | disposition expired | DRG 684 ==
LOC: ED 23:09 → MEDSURG A 02-23 01:53
PROVIDERS: ADMIT Family Medicine; ATTEND Family Medicine
DX: K52.9 Noninfective gastroenteritis and colitis, unspecified; E86.0 Dehydration; R53.1 Weakness; Z79.899 Other long term (current) drug therapy; Z20.822 Contact with and (suspected) exposure to COVID-19; Z51.81 Encounter for therapeutic drug level monitoring; N17.9 Acute kidney failure, unspecified; R79.89 Other specified abnormal findings of blood chemistry